=== PATIENT | female | born 1980 | race African-American/Black ===

== ENCOUNTER 2017-05-07 12:25 | Emergency (ER) | payer SELFPAY ==
[2017-05-07] MEDS ORDERED: hydrALAZINE 20 MG/ML VIAL ONE (12:48)
[2017-05-07 13:31] LABS: ALT (SGPT) 15 U/L (8-55); AST (SGOT) 15 U/L (5-34); Albumin 4.2 g/dL (3.5-5.0); Alkaline Phosphatase 70 U/L (40-150); Anion Gap 16 mmol/L (10-20); BUN (Urea Nitrogen) 13 mg/dL (7.0-18.7); Bilirubin, Total 1.3 mg/dL (0.2-1.2); CK (CPK) 99 U/L (29-168); Calc. Creatinine Clearance 0 mL/min (70-130); Calcium 9.8 mg/dL (7.8-10.44); Carbon Dioxide 23 mmol/L (22-29); Chloride 103 mmol/L (98-107); Estimated GFR-MDRD 38; Globulin 3.7 g/dL (2.4-3.5); Glucose 98 mg/dL (70-105); Potassium 3.6 mmol/L (3.5-5.1); Protein, Total 7.9 g/dL (6.0-8.3); Sodium 138 mmol/L (136-145)
[2017-05-07 13:32] LABS: CKMB 0.6 ng/mL (0-6.6); Troponin I Less than 0.010 ng/mL (< 0.028)
[2017-05-07 13:34] LABS: BHCG - Serum Negative (NEGATIVE); Pregs Control Bar Appear? YES (CONTROL BAR)
[2017-05-07 13:39] LABS: Hemoglobin 13.3 g/dL (12.0-16.0); Lymphocytes 34 % (21-51); MDiff Complete? YES; Mean Corpuscular HGB CONC 33.5 g/dL (32.0-36.0); Mean Corpuscular Hemoglobin 27.5 pg (27.0-31.0); Mean Platelet Volume 9.5 fL (7.4-10.4); Monocytes 8 % (0-10); Neutrophil 58 % (42-75); PLT Morphology Comment Appears Adequate; Platelet Count 259 thou/uL (130-400); RBC Distribution Width 12.9 % (11.5-14.5); Red Blood Cell (RBC) Count 4.84 mill/uL (4.20-5.40); White Blood Cell (WBC) Count 8.2 thou/uL (4.8-10.8)
[2017-05-07] MEDS ORDERED: Ketorolac Tromethamine 30 MG/ML VIAL ONE (13:41)
[2017-05-07] MEDS ORDERED: Sodium Chloride 0.9% 1,000 ML ONE (13:41)
[2017-05-07] MEDS ORDERED: Sodium Chloride 0.9% 100 ML ONE (13:41)
[2017-05-07] MEDS ORDERED: Metoclopramide HCl 10 MG/2 ML VIAL ONE (13:41)
[2017-05-07 13:45] LABS: Bilirubin Small (Negative); Blood, Urine Negative (Negative); Clarity Cloudy (Clear); Glucose, Urine (Dipstick) Negative (Negative); Leukocyte Negative (Negative); Nitrite Negative (Negative); Protein, Urine (Dipstick) > or equal to 300 mg/dL (Neg-Trace); Specific Gravity, Urine 1.025 (1.005-1.030); pH, Urine 5.5 (5.0-9.0)
[2017-05-07 13:55] LABS: RBC/HPF None Seen HPF (0-3)
[2017-05-07 13:56] LABS: Bacteria/HPF 3+ HPF (None Seen); Other Microscopic Description CLUE CELLS SEEN
[2017-05-07 14:01] LABS: Amphetamine Not Detected (NotDetected); Barbiturates Screen Not Detected (NotDetected); Benzodiazepine Screen Not Detected (NotDetected); Cocaine Metabolite Screen Not Detected (NotDetected); Medtox Control Line Valid? VALID (VALID); Methadone Not Detected (NotDetected); Methamphetamine Not Detected (NotDetected); Opiate Screen Detected (NotDetected); Oxycodone Screen Not Detected (NotDetected); Phencyclidine (PCP) Not Detected (NotDetected); THC/Cannabinoid Screen Not Detected (NotDetected); Tricyclic Screen Not Detected (NotDetected)
--- NOTE | 2017-05-07 14:03 | CT ---
CT BRAIN WITHOUT CONTRAST: Date: 05/07/17 HISTORY: Left-sided headache, nausea, vomiting, and chills. FINDINGS: No evidence of infarct, hemorrhage, midline shift, or abnormal extra-axial fluid collections are seen . The ventricular size is appropriate and the basilar cisterns are patent. The bony calvarium is inta ct. The visualized paranasal sinuses and mastoid air cells are well aerated. IMPRESSION: No CT evidence of acute intracranial process. POS: OFF
--- NOTE | 2017-05-07 14:15 | RAD ---
PORTABLE CHEST 1 VIEW: Date: 05/07/17 Time: 1327 hours HISTORY: Left-sided headache, hypertension, nausea, vomiting, and chills. FINDINGS: The heart size is normal. The lungs are expanded without focal areas of consolidation, pneumothorax, or pleural effusions. IMPRESSION: No radiographic evidence of acute cardiopulmonary process. POS: OFF
== END 2017-05-07 14:29 | disposition short-term general hospital (02) ==
LOC: NAV ERS 12:25
DX: I16.0 Hypertensive urgency (principal); I10 Essential (primary) hypertension
CPT/HCPCS: 36415; 70450; 71045; 80053; 80306; 81003; 81015; 82550; 82553; 84443; 84484; 84703; 85025; 93005; 96365; 96375; J0360; J1885; J2765; J7050

== ENCOUNTER 2017-09-29 16:49 | Emergency (ER) | payer SELFPAY | END 2017-09-29 18:00 | disposition home or self-care (01) | LOC: NAV ERS 16:49 | DX: M70.52 Other bursitis of knee, left knee (principal); I10 Essential (primary) hypertension; Z79.899 Other long term (current) drug therapy | CPT/HCPCS: 99283 ==

== ENCOUNTER 2024-02-05 10:08 | Emergency (ER) | payer SELFPAY ==
[2024-02-05] MEDS ORDERED: Ibuprofen 800 MG TAB ONE (10:58)
== END 2024-02-05 11:34 | disposition home or self-care (01) ==
LOC: NAV ERS 10:08
DX: S20.212A Contusion of left front wall of thorax, initial encounter (principal); I10 Essential (primary) hypertension; W22.8XXA Striking against or struck by other objects, initial encounter
CPT/HCPCS: 99283